=== PATIENT | female | born 1940 | race Native Hawaiian/Other Pacific Islander ===

== ENCOUNTER 2022-05-28 13:56 | Emergency (ER) | payer OTHER ==
[~2022-05-28 13:56] MED LIST: ONDA4TAB3 PO
[2022-05-28 17:27] LABS: PLATELET COUNT 178 K/uL (152-353)
[2022-05-28 17:36] LABS: POTASSIUM 4.2 mmol/L (3.6-5.2)
[2022-05-28] MEDS ORDERED: LOVASTATIN10 MG PO (17:45)
[2022-05-28] MEDS ORDERED: CARV12.5 PO (17:46)
[2022-05-28] MEDS ORDERED: LORA1TAB17 PO (17:47)
[2022-05-28] MEDS ORDERED: HYDROXYZINE HYD25 MG PO (17:48)
[2022-05-28] MEDS ORDERED: SPIR50TA8 PO (17:49)
[2022-05-28] MEDS ORDERED: TYLENOL325 MG PO (17:57)
[2022-05-28] MEDS ORDERED: MAGNSUS68 PO (17:58)
== END 2022-05-28 16:01 | disposition still patient (30) ==
LOC: ED 13:56
PROVIDERS: Family Medicine
DX: F03.90 Unspecified dementia, unspecified severity, without behavioral disturbance, psychotic disturbance, mood disturbance, and anxiety (principal); F22 Delusional disorders; Z20.822 Contact with and (suspected) exposure to COVID-19
CPT/HCPCS: 80053; 80143; 80179; 80307; 80320; 81002; 85027; 87635; 93005; 99283; U0003